=== PATIENT | female | born 1990 | race Caucasian/White ===

== ENCOUNTER → 2019-02-14 | Outpatient (CLI) | payer MEDICAID ==
[2019-02-14 11:41] LABS: Chol/HDL Ratio 2.33; LDL Cholesterol,Calculated 76.8 mg/dL (0.0-131.0); VLDL Calculation 16.2 mg/dL (5.00-40.00)
[2019-02-14 11:48] LABS: T4, Free (Free Thyroxine) 1.2 ng/dL (0.80-1.80)
== END | disposition home or self-care (01) ==
LOC: LABWHC1 06:58
PROVIDERS: ATTEND Obstetrics & Gynecology
DX: Z13.1 Encounter for screening for diabetes mellitus (principal); Z13.220 Encounter for screening for lipoid disorders
CPT/HCPCS: 36415; 80061; 82947; 84439; 84443

== ENCOUNTER → 2021-03-26 | Outpatient (CLI) | payer MEDICAID ==
[2021-03-26 14:33] LABS: Basophils # (A) 0.03 X 10*3/uL (0.00-0.10); Basophils % (A) 0.5 %; Eosinophils # (A) 0.22 X 10*3/uL (0.04-0.35); Eosinophils % (A) 3.9 %; HCT 41.1 % (37.2-46.3); HGB 13.8 g/dL (12.0-15.0); Lymphocytes # (A) 1.97 X 10*3/uL (0.90-5.00); MCH 31.3 pg (27.0-32.0); MCHC 33.6 g/dL (32.0-37.0); MCV 93.2 fL (80.0-97.0); Mean Platelet Volume 10.8 fL (9.5-12.2); Monocytes # (A) 0.45 X 10*3/uL (0.20-1.00); Neutrophils # (A) 2.95 X 10*3/uL (1.80-7.70); Neutrophils % (A) 52.4 %; Platelet Count 253 X 10*3/uL (140-440); RBC 4.41 X 10*6/uL (4.10-5.20); RDW 11.7 % (11.5-14.5); WBC 5.63 X 10*3/uL (4.50-10.00)
[2021-03-26 15:26] LABS: ALT 17 U/L (8-44); AST 17 U/L (13-35); African American GFR (CKD) 113.1 (60.0-200.0); Albumin 4.8 g/dL (3.8-4.9); Albumin/Globulin Ratio 2.09 (1.60-3.17); Alkaline Phosphatase 55 U/L (41-126); BUN/Creat Ratio 18.25 Ratio (12.00-20.00); Blood Urea Nitrogen 14.6 mg/dL (9.0-27.0); Calcium 9.3 mg/dL (8.7-10.3); Carbon Dioxide 22.4 mmol/L (20.0-27.5); Chloride 104 mmol/L (96-109); Chol/HDL Ratio 2.02 Ratio; Globulin 2.3 g/dL (1.6-3.3); Glucose 82 mg/dL (70-110); LDL Cholesterol,Calculated 83.2 mg/dL (0.0-131.0); Non-African American GFR(CKD) 97.6 (60.0-200.0); Sodium 140 mmol/L (135-145); Total Protein 7.1 g/dL (6.2-8.2)
== END | disposition home or self-care (01) ==
LOC: LABWHC1 07:43
PROVIDERS: ATTEND Nurse Practitioner Family
DX: Z00.00 Encounter for general adult medical examination without abnormal findings (principal); Z13.220 Encounter for screening for lipoid disorders; Z13.228 Encounter for screening for other metabolic disorders; Z13.21 Encounter for screening for nutritional disorder
CPT/HCPCS: 36415; 80053; 80061; 82306; 84443; 85025

== ENCOUNTER → 2022-06-16 | Outpatient (CLI) | payer MEDICAID ==
--- NOTE | 2022-06-16 10:57 | US ---
EXAMINATION TYPE: US pelvic complete DATE OF EXAM: 06/16/2022 COMPARISON: None CLINICAL HISTORY: 32-year-old female N92.0 EXCESSIVE AND FREQUENT MENSTRUATION W, N92.1 MAVIS. Francisca escan for upcoming ablation. TECHNIQUE: Transabdominal sonographic images of the pelvis were acquired. Date of LMP: 05/19/2022 FINDINGS: EXAM MEASUREMENTS: Uterus: 7.7 x 3.3 x 5.1 cm Endometrial Stripe: 1.1 cm Right Ovary: 2.9 x 1.6 x 2.3 cm Left Ovary: 2.9 x 1.5 x 2.2 cm 1. Uterus: anteverted and otherwise within normal limits 2. Endometrium: appears wnl 3. Right Ovary: wnl with follicular change 4. Left Ovary: wnl with follicular change 5. Bilateral Adnexa: wnl 6. Posterior cul-de-sac: wnl IMPRESSION: Endometrial stripe thickness of 1.1 cm should correspond to the secretory phase of the menstrual cycl e. Normal follicular change in both ovaries.
== END | disposition home or self-care (01) ==
LOC: RADUSWWP 09:52
PROVIDERS: ATTEND Obstetrics & Gynecology
DX: N92.0 Excessive and frequent menstruation with regular cycle (principal)
CPT/HCPCS: 76856

== ENCOUNTER → 2022-06-17 | Outpatient (CLI) | payer MEDICAID ==
[2022-06-17 11:06] LABS: T4, Free (Free Thyroxine) 1.32 ng/dL (0.800-1.800)
== END | disposition home or self-care (01) ==
LOC: LABWHC1 07:54
PROVIDERS: ATTEND Obstetrics & Gynecology
DX: Z13.29 Encounter for screening for other suspected endocrine disorder (principal); R53.81 Other malaise; R53.83 Other fatigue
CPT/HCPCS: 36415; 84439; 84443

== ENCOUNTER → 2022-06-23 | Outpatient (CLI) | payer MEDICAID ==
[2022-06-23 12:18] LABS: Basophils % (A) 1 %; Eosinophils # (A) 0.1 k/uL (0-0.7); Eosinophils % (A) 2 %; HCT 41.9 % (34.0-46.0); HGB 14.7 gm/dL (11.4-16.0); Lymphocytes # (A) 1.6 k/uL (1.0-4.8); Lymphocytes % (A) 22 %; MCH 32.5 pg (25.0-35.0); MCHC 35.1 g/dL (31.0-37.0); MCV 92.6 fL (80.0-100.0); Monocytes # (A) 0.3 k/uL (0-1.0); Monocytes % (A) 4 %; Neutrophils # (A) 5.1 k/uL (1.3-7.7); Neutrophils % (A) 70 %; Platelet Count 250 k/uL (150-450); RBC 4.53 m/uL (3.80-5.40); RDW 12.5 % (11.5-15.5); WBC 7.4 k/uL (3.8-10.6)
== END | disposition home or self-care (01) ==
LOC: LABPAT 10:10
PROVIDERS: ATTEND Obstetrics & Gynecology
DX: Z01.812 Encounter for preprocedural laboratory examination (principal)
CPT/HCPCS: 36415; 85025

== ENCOUNTER 2022-06-24 07:20 | Day surgery (SDC) | payer MEDICAID ==
[2022-06-23 09:00] VITALS: BMI 23.3
--- NOTE | 2022-06-23 20:15 | P.HPOB ---
History of Present Illness H&P Date: 06/23/22 Chief Complaint: Menorrhagia with regular cycle This is a 32 y.o. female, 2, para 2, who presents for dilation and curettage with hysteroscopy and Novasure endometrial ablation due to menorrhagia with regular cycle. Menses are regular but very heavy with clots and cramping. Pelvic ultrasound shows uterus measuring 7.7 x 3.3 x 5.1 cm, with endometrium measuring 1.1 cm, and normal ovaries. Her has had a vasectomy. OB Hx: . History of 2 vaginal deliveries. 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 Works a [employer]. Review of Systems Constitutional: Reports night sweats, Denies chills, Denies fever Eyes: denies blurred vision, denies pain Ears, nose, mouth and throat: Denies headache, Denies sore throat Cardiovascular: Denies chest pain, Denies shortness of breath Respiratory: Denies cough Gastrointestinal: Denies abdominal pain, Denies diarrhea, Denies nausea, Denies vomiting Genitourinary: Reports dysmenorrhea, Reports menorrhagia, Reports pelvic pain Menstruation: Reports period heavy Musculoskeletal: Denies myalgias Integumentary: Denies pruritus, Denies rash Neurological: Reports migraines Psychiatric: Reports anxiety, Reports depression Endocrine: Denies fatigue, Denies weight change Past Medical History Past Medical History: No Reported History Additional Past Medical History / Comment(s): heavy menses History of Any Multi-Drug Resistant Organisms: None Reported Past Surgical History: No Surgical Hx Reported Past Anesthesia/Blood Transfusion Reactions: No Reported Reaction Additional Past Anesthesia/Blood Transfusion Reaction / Comment(s): no hx blood transfusion Past Psychological History: Anxiety, Depression Smoking Status: Never smoker Past Alcohol Use History: Occasional Past Drug Use History: None Reported - Past Family History Father Family Medical History: Diabetes Mellitus, Hypertension Medications and Allergies Home Medications Medication Instructions Recorded Confirmed Type No Known Home Medications 06/23/22 06/23/22 History Allergies Allergy/AdvReac Type Severity Reaction Status Date / Time Penicillins Allergy Rash/Hives Verified 06/24/22 07:48 Exam Osteopathic Statement: *. No significant issues noted on an osteopathic structural exam other than those noted in the History and Physical/Consult. Intake and Output 06/23/22 06/23/2206/23/23 06:59 14:59 22:59 Other: Weight 65.771 kg HEENT: within normal limits Heart: regular rate and rhythm Lungs: clear to auscultation bilaterally Abdomen: soft, non-tender Pelvic: uterus anteverted, non-tender, no adnexal masses or tenderness Extremities: neg. Ricky's Assessment and Plan (1) Menorrhagia with regular cycle Current Visit: No Status: Acute Code(s): N92.0 - EXCESSIVE AND FREQUENT MENSTRUATION WITH REGULAR CYCLE SNOMED Code(s): 204786921 Plan: Proceed with dilatation and curettage with hysteroscopy and Novasure endometrial ablation. I have discussed the risks, benefits, and alternative therapies for the above- mentioned procedure and for both sedation/anesthesia as well as necessary blood products administration, if indicated, as they pertain to this patient. The patient has indicated her understanding and acceptance of the risks and procedures discussed.
[~2022-06-24 07:20] MED LIST: Pre Op ABX Message 1 EACH MISC MISCELLANE ONE
[2022-06-24] MEDS ORDERED: ONDANSETRON 4 MG/2 ML VIAL IVP PRN (07:36)
[2022-06-24] MEDS ORDERED: DEXAMETHASONE SOD PHOSPHATE 4 MG/ML 1 ML VIAL IV ONE (07:36)
[2022-06-24] MEDS ORDERED: LACTATED RINGERS 1,000 ML IV SCH (07:36)
[2022-06-24] MEDS ORDERED: SCOPOLAMINE 1 MG/72 HR PATCH TRANSDERM ONE (07:36)
[2022-06-24] MEDS ORDERED: LIDOCAINE 1% (10MG/ML) FOR IV START INTRADERMA PRN (07:36)
[2022-06-24] MEDS ORDERED: KETOROLAC 30 MG/ML 1 ML VIAL ONE (09:42)
[2022-06-24] MEDS ORDERED: MIDAZOLAM 2 MG/2 ML VIAL ONE (09:42)
[2022-06-24] MEDS ORDERED: fentaNYL (PF) 50 MCG/ML 2 ML AMP ONE (09:42)
[2022-06-24] MEDS ORDERED: LACTATED RINGERS 1,000 ML IV ONE (09:50)
--- NOTE | 2022-06-24 10:11 | P.OP ---
Date of Procedure: 06/24/22 Preoperative Diagnosis: Menorrhagia with regular cycle Postoperative Diagnosis: Same Procedure(s) Performed: Dilation and curettage with hysteroscopy and NovaSure endometrial ablation Anesthesia: MEG Surgeon: Iona Hilario Estimated Blood Loss (ml): 2 Pathology: other (Endometrial curettings) Condition: stable Disposition: same day Indications for Procedure: This is a 32 y.o. female, 2, para 2, who presents for dilation and curettage with hysteroscopy and Novasure endometrial ablation due to menorrhagia with regular cycle. Menses are regular but very heavy with clots and cramping. Pelvic ultrasound shows uterus measuring 7.7 x 3.3 x 5.1 cm, with endometrium measuring 1.1 cm, and normal ovaries. Her has had a vasectomy. Operative Findings: Uterus is anteverted and sounded to 8 cm. Cervix is sounded to 3 cm. Upon hysteroscopy, a slightly dyssynchronous endometrial pattern is noted. Both tubal ostia are visualized. No specific polyps are noted. Description of Procedure: The patient is taken to the operating room. She is placed in the dorsal lithotomy position after general anesthesia was given. She is prepped and draped in the normal sterile fashion. Bladder is drained with a catheter and then removed. Pelvic exam is performed under anesthesia. Uterus is found to be anteverted with no adnexal masses. She is placed in slight Trendelenburg position. A right angle retractor is used to visualize the cervix. The anterior lip of the cervix is grasped with an Allis clamp. Cervix is sounded to 3 cm. Uterus is sounded to 8 cm. Cervix is gently dilated with King dilators until a hysteroscope could be passed. Hysteroscopy is performed using normal saline. The above noted findings are noted. Next a polyp forceps is introduced. A moderate amount of tissue was obtained. Next medium-sized size sharp curette was placed. A moderate amount of endometrial curettings were obtained. Next NovaSure array was inserted into the endometrial cavity. Length was set at 5 cm and width was determined to be 4.3 cm. Next cavity assessment was completed and passed on the first try. Next NovaSure array was fired at 118 W for 60 seconds. Next the array was removed, inspected and then discarded. Next the hysteroscope was reinserted. Uniform charring was noted. Pictures were taken. Hysteroscope was removed. Allis clamp was removed from the anterior lip of the cervix. Minimal bleeding was noted. All other instruments removed from the vagina. Sponge counts were correct. Patient is taken to recovery room in stable condition.
[2022-06-24] MEDS: HYDROmorphone 0.5 MG/0.5 ML SYRINGE IVP PRN ×4 (10:44→11:42)
[2022-06-24] MEDS ORDERED: HYDROcodone/APAP 5-325MG 1 EACH TAB ONE (12:35)
[2022-06-24] MEDS ORDERED: HYDROcodone/APAP 5-325MG 1 EACH TAB PO ONE ×2 (12:35→12:50)
[2022-06-24 12:58] VITALS: TEMP 97.9
[2022-06-24 13:22] VITALS: BP 1235/84; PULSE 88; RESP 18
== END 2022-06-24 13:47 | disposition home or self-care (01) ==
LOC: OR 07:20
PROVIDERS: ATTEND Obstetrics & Gynecology
DX: N92.0 Excessive and frequent menstruation with regular cycle (principal); F32.A Depression, unspecified; F41.9 Anxiety disorder, unspecified; Z88.0 Allergy status to penicillin
CPT/HCPCS: 58563; 81025; 88305; J2250; J1100; J2405; J3010; J1885; J1170